=== PATIENT | female | born 1980 | race Two or more races ===

== ENCOUNTER 2023-11-19 22:37 | Emergency (ER) | payer OTHER ==
[~2023-11-19] VITALS: Ht 154.9 cm; Wt 90.4 kg
[2023-11-19] MEDS ORDERED: SODIENE35 RE (23:11)
[2023-11-19 23:15] VITALS: BP 105/66; PULSE 78; RESP 14; TEMP 98.4; O2SAT 96
== END 2023-11-19 23:41 | disposition home or self-care (01) ==
LOC: ER 22:37
DX: K59.00 Constipation, unspecified (principal); Z98.890 Other specified postprocedural states